=== PATIENT | male | born 1990 | race Two or more races ===

== ENCOUNTER 2023-05-05 09:38 | Outpatient (CLI) | payer OTHER ==
[~2023-05-05 09:38] MED LIST: KETO10TA2 PO; TUSSI PRES-B L120 M1 PO; ZITHROMAX TRI-500 MG PO
== END 2023-05-05 09:45 | disposition home or self-care (01) ==
LOC: NUCLEAR 09:38
PROVIDERS: ATTEND Internal Medicine Cardiovascular Disease
DX: I73.9 Peripheral vascular disease, unspecified (principal)

== ENCOUNTER 2023-05-06 08:53 | Outpatient (CLI) | payer OTHER | END 2023-05-06 08:54 | disposition home or self-care (01) | LOC: NUCLEAR 08:53 | PROVIDERS: ATTEND Internal Medicine Cardiovascular Disease | DX: I87.2 Venous insufficiency (chronic) (peripheral) (principal) ==

== ENCOUNTER 2023-05-07 09:27 | Outpatient (CLI) | payer OTHER | END 2023-05-07 09:28 | disposition home or self-care (01) | LOC: NUCLEAR 09:27 | PROVIDERS: ATTEND Internal Medicine Cardiovascular Disease | DX: G45.9 Transient cerebral ischemic attack, unspecified (principal) ==

== ENCOUNTER 2024-07-19 10:17 | Outpatient (CLI) | payer OTHER | END 2024-07-19 10:18 | disposition home or self-care (01) | LOC: NUCLEAR 10:17 | PROVIDERS: ATTEND Internal Medicine Cardiovascular Disease | DX: R07.9 Chest pain, unspecified (principal) ==

== ENCOUNTER 2024-07-20 11:07 | Outpatient (CLI) | payer OTHER | END 2024-07-20 11:09 | disposition home or self-care (01) | LOC: NUCLEAR 11:07 | PROVIDERS: ATTEND Internal Medicine Cardiovascular Disease | DX: I10 Essential (primary) hypertension (principal) ==

== ENCOUNTER 2024-07-27 08:45 | Outpatient (CLI) | payer OTHER | END 2024-07-27 08:47 | disposition home or self-care (01) | LOC: NUCLEAR 08:45 | PROVIDERS: ATTEND Internal Medicine Cardiovascular Disease | DX: R07.9 Chest pain, unspecified (principal) ==